=== PATIENT | female | born 1940 | race Caucasian/White ===

== ENCOUNTER 2020-03-20 08:06 | Outpatient (CLI) | payer MEDICARE, SELFPAY ==
[2020-03-20 08:42] LABS: Basophils Absolute Auto 0.1 K/mm3 (0.0-0.1); Basophils Percent Auto 0.4 % (0.2-1.2); Eosinophils Absolute Auto 0.1 K/mm3 (0-0.3); Eosinophils Percent Auto 0.8 % (0-4.4); Hematocrit 42.2 % (37.0-47.0); Hemoglobin 14.2 g/dL (12.0-15.0); Immature Granulocyte Absolute 0.02 K/mm3 (0.00-0.031); Immature Granulocyte Percent A 0.1 % (0-0.5); Lymphocytes Absolute Auto 8.02 K/mm3 (0.9-3.2); Lymphocytes Percent Auto 58.2 % (18.3-44.2); Mean Corpuscular HGB Conc 33.6 g/dl (32-36); Mean Corpuscular Hemoglobin 31.8 pg (26-34); Mean Corpuscular Volume 94.6 fl (80-100); Mean Platelet Volume 9.9 fl (7.4-10.4); Monocytes Absolute Auto 0.5 K/mm3 (0.1-0.6); Monocytes Percent Auto 3.6 % (2.6-8.5); Neutrophils Absolute Auto 5.1 K/mm3 (1.3-6.7); Neutrophils Percent Auto 36.9 % (45.5-73.1); Platelet Count Result 231 k/mm3 (150-375); Red Blood Count 4.46 M/mm3 (4.2-5.4); Red Cell Distribution Width 12.9 % (11.5-14.5); White Blood Count 13.8 K/mm3 (4.5-10.0)
[2020-03-20 08:48] LABS: Blood Urea Nitrogen 20 mg/dL (7-17); Calcium 9.4 mg/dL (8.4-10.2); Carbon Dioxide 28 mmol/L (22-30); Chloride 105 mmol/L (98-107); Estimated Glomerular Filt Rate > 60; Glucose 103 mg/dL (65-105); Potassium 4.5 mmol/L (3.4-5.0); Sodium 137 mmol/L (137-145)
== END 2020-03-20 08:07 | disposition home or self-care (01) ==
PROVIDERS: PCP Internal Medicine; Visit Provider Internal Medicine
DX: Z13.6 Encounter for screening for cardiovascular disorders (principal); C91.10 Chronic lymphocytic leukemia of B-cell type not having achieved remission
CPT/HCPCS: 36415; 80048; 85025

== ENCOUNTER 2020-04-17 08:19 | Outpatient (CLI) | payer MEDICARE, SELFPAY ==
--- NOTE | ~2020-04-17 | MM_ITS ---
EXAMINATION: MM screening anastacio BI w marty HISTORY: Screening TECHNIQUE: Craniocaudal and mediolateral oblique 3-D tomosynthesis images were obtained and synthetic 2-D images were generated. CAD analysis was submitted and interpreted. COMPARISON: Comparison to multiple prior studies sequentially, with oldest reviewed study dated 08/04. BREAST PARENCHYMAL COMPOSITION: There are scattered areas of fibroglandular density. FINDINGS: Stable benign-appearing breast calcifications. There is no evidence of suspicious mass, cam cification, or architectural distortion to suggest malignancy in either breast. There has been no kathleen picious interval change. IMPRESSION: 1. No mammographic evidence of malignancy. 2. Recommend routine screening mammography in one year. BI-RADS Category 2: Benign finding(s). Reviewed, dictated and finalized at location A.
== END 2020-04-17 08:20 | disposition home or self-care (01) ==
PROVIDERS: PCP Internal Medicine; Visit Provider Internal Medicine
DX: Z12.31 Encounter for screening mammogram for malignant neoplasm of breast (principal)
CPT/HCPCS: 77063; 77067

== ENCOUNTER 2021-01-04 22:51 | Inpatient (IN) | payer MEDICARE, OTHER, SELFPAY ==
--- NOTE | ~2021-01-04 | XR_ITS ---
EXAMINATION: XR chest 1V INDICATION: Confusion TECHNIQUE: AP view of the chest is obtained. COMPARISON: 01/31/2014 FINDINGS: There is a possible 4 mm nodule in the right upper lung zone. Minimal airspace opacities ar e present in the right lung base. There is no pleural effusion or pneumothorax. The cardiomediastinal silhouette is normal. Thoracolumbar levoscoliosis is noted. IMPRESSION: 1. Right basilar airspace opacity, consistent with atelectasis versus pneumonia. 2. Possible right upper lung zone nodule. Recommend followup radiographs in 10-14 days after appropri ate therapy to evaluate for improvement/resolution. Reviewed, dictated and finalized at location A. IMPRESSION: 1. Right basilar airspace opacity, consistent with atelectasis versus pneumonia . 2. Possible right upper lung zone nodule. Recommend followup radiographs in 10- 14 days after appropriate therapy to evaluate for improvement/resolution.
--- NOTE | ~2021-01-04 | CT_ITS ---
EXAMINATION: CT brain wo con INDICATION: Confusion and fall COMPARISON: None TECHNIQUE: Standard unenhanced head CT. The dose-length product (DLP) was 605.33 mGy-cm. The mA was a djusted according to patient size. Iterative reconstruction technique was employed. FINDINGS: There is no acute intraparenchymal hemorrhage. No evidence of mass lesion. There is hypoatt enuation involving much of the left occipital lobe. There is mild periventricular and subcortical hyp odensity probably related to small vessel ischemic disease. There is mild prominence of the sulci and ventricles related to cerebral atrophy. Intracranial calcified cerebral atherosclerosis is noted. Th ere are no extra-axial collections. There is no mass effect or midline shift. The orbits and soft tis sues are unremarkable. The visualized sinuses and mastoid air cells are well aerated. IMPRESSION: 1. Hypoattenuation involving much of the left occipital lobe, consistent with subacute infarct. These findings were discussed with Dr. Sonali Solorzano in the Emergency Department at 0200 hours on 01/05/2021 by the [employer] Radiologist. 2. Age related findings. Reviewed, dictated and finalized at location A. IMPRESSION: 1. Hypoattenuation involving much of the left occipital lobe, consistent with s ubacute infarct. These findings were discussed with Dr. Sonali Solorzano in the Em ergency Department at 0200 hours on 01/05/2021 by the [employer] Radiologist. 2. Age related findings.
--- NOTE | ~2021-01-04 | US_ITS ---
EXAMINATION: US carotid duplex BI DATE: 01/05/2021 13:35 INDICATION: Stroke with confusion and unsteady gait TECHNIQUE: Grayscale, color Doppler, and pulsed Doppler images of the cervical carotid arteries were obtained. The degree of vessel stenosis is placed in one of the following categories: normal, <50%, 5 0-69%, >=70% but less than near-occlusion, near-occlusion, or total occlusion. Note that percent sten osis relative to normal distal artery lumen diameter is indirectly measured from velocity measurement s as described by Kory, et al. Radiology 2003; 229:340-346. COMPARISON: None. FINDINGS: RIGHT: The right common carotid artery (CCA) peak systolic velocity (PSV) is 98 cm/s. The right internal car otid artery (ICA) PSV is 80 cm/s. The right ICA end-diastolic velocity (EDV) is 22 cm/s. The right IC A/CCA PSV ratio is 0.8. Grayscale and color Doppler images yield an estimate of <50% diameter reducti on from plaque in the ICA. The external carotid artery (ECA) PSV is 69 cm/s. There is antegrade flow in the right vertebral artery. LEFT: The left CCA PSV is 119 cm/s. The left ICA PSV is 61 cm/s. The left ICA EDV is 19 cm/s. The left ICA/ CCA PSV ratio is 0.5. Grayscale and color Doppler images yield an estimate of <50% diameter reduction from plaque in the ICA. The ECA PSV is 101 cm/s. There is antegrade flow in the left vertebral arter y. IMPRESSION: 1. <50% stenosis from minimal plaque in the right internal carotid artery. 2. <50% stenosis from minimal plaque in the left internal carotid artery. Reviewed, dictated and finalized at location A.
--- NOTE | ~2021-01-04 | MR_ITS ---
EXAMINATION: MR brain/brain stem wo/w con EXAM DATE: 01/05/2021 12:15 INDICATION: Unsteady gait, confusion. TECHNIQUE: Magnetic resonance imaging (MRI) of the brain/brain stem obtained without contrast. Sagit yoel T1, axial diffusion, gradient echo (T2*), T1, T2, FLAIR sequences obtained. Patient was then inj ected with 10 cc intravenous Multihance contrast. Axial and coronal postcontrast T1 weighted sequence s obtained. Correlation is made to head CT earlier same date. FINDINGS: There is large left temporal occipital lobe infarction with some smaller scattered regions in the left side of the corpus callosum posterior limb, and small left thalamic lacunar infarction. T hese are all within expected left posterior cerebral artery distribution, no infarctions within other distributions identified. No hemorrhagic conversion. Degree of gyral swelling suggests this is at le ast 24 hours old. No brain mass. There is mild microangiopathy and cerebral atrophy. There is no acute hemorrhage seen on the T2*, a susceptibility sensitive sequence. There are no extra-axial collections. No obstructive hydrocephalus. Bilateral cataract surgery. IMPRESSION: 1. Acute left [employer] infarctions (likely 1-2 days age). Reviewed, dictated and finalized at location B.
[2021-01-04 22:54] VITALS: BP 168/82; PULSE 88; RESP 18; TEMP 36.3; O2SAT 99
[2021-01-04 23:36] VITALS: BP 134/88; PULSE 80; RESP 16; O2SAT 99
--- NOTE | 2021-01-04 23:54 | ECG_ITS ---
Measurements Intervals [place] Rate: 76 P: 60 NM: 177 QRS: 14 QRSD: 86 T: 43 QT: 361 QTc: 406 Interpretive Statements SINUS RHYTHM POSSIBLE LEFT ATRIAL ENLARGEMENT BORDERLINE ECG Electronically Signed On 01-05-2021 7:13:16 CDT by Jonathan Davis D.O.
[2021-01-05] VITALS (8 sets, daily range): BP systolic 125–154; BP diastolic 60–94; PULSE 58–84; RESP 16–20; TEMP 36.4–36.6; O2SAT 92–99; BMI 21.9
--- NOTE | 2021-01-05 | ECHO_ITS ---
Patient Info Name: Yandy Manuel Age: 80 years : 1940 Gender: Female Ht: 61 in Wt: 115 lbs BSA: 1.50 m2 HR: 80 bpm BP: 143 / 63 mmHg Technical Quality: Fair Exam Date: 01/05/2021 2:21 PM Exam Location: [facility] Pulmonary Patient Status: Inpatient Admit Date: 01/05/2021 Staff Ordering Physician: Chelsi Trotter MD [employer] Supervisor: Leigha Francis RDCS Attending Provider: Taniya Bojorquez DO Referring Physician: Rose Marie OG; Exam Type: CA echo doppler color flow Study Info Indications - cva Complete two-dimensional, color flow and Doppler transthoracic echocardiogram is performed. Summary 1. Complete two-dimensional, color flow and Doppler transthoracic echocardiogram is performed. 2. Left ventricular chamber dimension is normal. 3. Left ventricular systolic function is normal, estimated at 60-65%. 4. The left ventricular diastolic function is grade II diastolic dysfunction. 5. E/e' 12 is mildly elevated. 6. There is trace tricuspid valve regurgitation. 7. No pulmonary hypertension, estimated pulmonary arterial systolic pressure is 24 mmHg. Left Ventricle E/e' 12 is mildly elevated. Left ventricular chamber dimension is normal. Left ventricular systolic function is normal, estimated at 60-65%. The left ventricular diastolic function is grade II diastolic dysfunction. Right Ventricle Right ventricular chamber dimension is normal. Right ventricular systolic function is normal. Left Atria Left atrial chamber dimension is normal. Right Atria Right atrial chamber dimension is normal. Aortic Valve The aortic valve is trileaflet. There is no aortic valve stenosis. There is no aortic valve regurgitation. Pulmonic Valve There is no pulmonic regurgitation. Mitral Valve There is no mitral valve stenosis. There is no mitral valve regurgitation. Tricuspid Valve There is trace tricuspid valve regurgitation. No pulmonary hypertension, estimated pulmonary arterial systolic pressure is 24 mmHg. Pericardium/Pleural There is no pericardial effusion. Inferior Vena Cava Normal inferior vena cava with >50% collapse upon inspiration consistent with normal right atrial pressure, 5 mmHg. Aorta The aortic root size at the sinus of Valsalva is normal. Left Ventricular Outflow Tract Name Value Normal LVOT 2D LVOT Diameter 1.9 cm LVOT Doppler LVOT Peak Velocity 124 cm/s LVOT Peak Gradient 6 mmHg LVOT Mean Gradient 4 mmHg LVOT VTI 24 cm LVOT VTI/AV VTI Ratio 0.8 LVOT Stroke Volume 71 ml LVOT CO 5.3 l/min LVOT CI 3.5 l/min/m2 Pulmonic Valve Name Value Normal RVOT Doppler RVOT Peak Grad
[2021-01-05 00:23] LABS: Basophils Percent Auto 0.3 % (0.2-1.2); Eosinophils Percent Auto 0.3 % (0-4.4); Hematocrit 38.4 % (37.0-47.0); Hemoglobin 12.8 g/dL (12.0-15.0); Immature Granulocyte Absolute 0.05 K/mm3 (0.00-0.031); Immature Granulocyte Percent A 0.3 % (0-0.5); Lymphocytes Percent Auto 43.6 % (18.3-44.2); Mean Corpuscular HGB Conc 33.3 g/dl (32-36); Mean Corpuscular Hemoglobin 31.6 pg (26-34); Mean Corpuscular Volume 94.8 fl (80-100); Mean Platelet Volume 9.8 fl (7.4-10.4); Monocytes Absolute Auto 0.8 K/mm3 (0.1-0.6); Monocytes Percent Auto 5.1 % (2.6-8.5); Neutrophils Absolute Auto 7.9 K/mm3 (1.3-6.7); Neutrophils Percent Auto 50.4 % (45.5-73.1); Platelet Count Result 218 k/mm3 (150-375); Red Blood Count 4.05 M/mm3 (4.2-5.4); Red Cell Distribution Width 12.7 % (11.5-14.5); White Blood Count 15.6 K/mm3 (4.5-10.0)
[2021-01-05 00:32] LABS: Prothrombin Time 13.4 Seconds (11.1-14.7)
[2021-01-05 00:33] LABS: Partial Thromboplastin Time 29.5 SECONDS (22.3-36.8)
[2021-01-05 00:37] LABS: Alanine Aminotransferase 17 U/L (4-35); Albumin Level 4.2 g/dL (3.5-5.1); Alkaline Phosphatase 67 U/L (38-126); Anion Gap 3 mmol/L (8-16); Aspartate Amino Transferase 31 U/L (14-36); Bilirubin,Total 1.2 mg/dL (0.2-1.3); Blood Urea Nitrogen 13 mg/dL (7-17); Calcium 9.6 mg/dL (8.4-10.2); Carbon Dioxide 30 mmol/L (22-30); Chloride 104 mmol/L (98-107); Estimated CRCL calculation 39 ml/min; Estimated Glomerular Filt Rate > 60; Glucose 115 mg/dL (65-105); Potassium 4.1 mmol/L (3.4-5.0); Sodium 137 mmol/L (137-145)
[2021-01-05 00:42] LABS: Troponin I < 0.012 ng/mL (0.000-0.034)
[2021-01-05 00:50] LABS: Creatine Kinase 75 U/L (30-135)
--- NOTE | 2021-01-05 00:56 | ED.AMS ---
HPI - Altered Mental Status General Chief Complaint: Altered Mental Status Stated Complaint: confusion Time Seen by Provider: 01/04/21 23:52 Source: family and RN notes reviewed Mode of arrival: ambulatory Limitations: no limitations History of Present Illness HPI narrative: Patient 80 years old white female brought to the emergency room by her son who noticed that the patient is unsteady and confused. The son reported that his cousin called the patient yesterday and noticed that she is off on the phone. Today the son called his mom and noticed the same, went to see her at home and noticed that she is unsteady while walking, confused, tried to comb her hair using a lipstick, trying to brush her teeth again after she just finished, did not recall a fall, cannot follow his verbal commands. The son noticed that the patient have a little bruises at the right angle of the right eye. Patient denies any fall. Does not take any blood thinner. History of anxiety on Xanax, depression and IBS. Patient does not smoke or drink or uses drugs. Related Data Home Medications Medication Instructions Recorded Confirmed Bacillus coagulans 10 billion cell cell PO 07/04/19 09/25/20 capsule,delayed release cetirizine 10 mg tablet 5 mg PO DAILY PRN 07/04/19 09/25/20 Allergies Allergy/AdvReac Type Severity Reaction Status Date / Time No Known Allergies Allergy Verified 01/04/21 23:39 Review of Systems Review of Systems: ROS unobtainable: Yes unobtainable due to mental status PMFSH Family History Family History Mother Cerebrovascular accident Father Carcinoma of colon Family history of diabetes mellitus in first degree relative Grandparent Diabetes mellitus Sibling Family history of lung cancer Other Family history of malignant neoplasm of breast Social History Social History Smoking status: Never smoker Alcohol intake: never Gender identity (if verbalized by the patient): Female Exam Narrative: Exam Narrative: General appearance: Well-developed, well-nourished Skin: Normal color, 1 cm bruises at the right corner of the eye externally Head: Normocephalic, nontraumatic Eyes: Clear conjunctiva ENT: Oropharynx normal, ears normal, nose normal Neck: Supple, nontender Chest and respiratory: Airway patent, no respiratory distress, no accessory muscle use Heart: Regular rate/rhythm Abdomen: Soft, nontender, no organomegaly, quiet bowel sounds Vascular: Normal peripheral pulses, normal capillary refill. Musculoskeletal: Normal range of motion, nontender back Neurologic: Alert and oriented ?3, unsteady while walking possible shuffling the right foot Course Course Emergency Course: Stable Vital Signs Vital signs: Vital Signs Temperature 36.3 C L 01/04/21 22:54 Pulse Rate 88 01/04/21 22:54 Respiratory Rate 18 01/04/21 22:54 Blood Pressure 168/82 H 01/04/21 22:54 Pulse Oximetry 99 01/04/21 22:54 Temperature 36.3 C L 01/04/21 22:54 Pulse Rate 80 01/05/21 01:08 Respiratory Rate 20 01/05/21 01:08 Blood Pressure 154/94 H 01/05/21 01:08 Pulse Oximetry 99 01/04/21 23:36 MDM - Altered Mental Status MDM Narrative Medical decision making narrative: Patient presents with stroke symptoms. Labs, CT head without contrast ordered. Further plan to follow Differential Diagnosis Differential diagnosis: Likely altered mental status, delirium, hypoglycemia, hyponatremia, subarachnoid hemorrhage and other (Acute CVA) Lab Data Result diagrams: 01/05/21 00:08 01/05/21 00:08 Labs: Lab Results 01/05/21 01/05/21 01/05/21 Range/Units 00:08 00:08 00:08 WBC 15.6 H (4.5-10.0) K/mm3 RBC 4.05 L (4.2-5.4) M/mm3 Hgb 12.8 (12.0-15.0) g/dL Hct 38.4 (37.0-47.0) % MCV 94.8
[2021-01-05] MEDS: SODIUM CHLORIDE 0.9% IV 1,000 ML 999 ML IV CONT (01:07)
[2021-01-05 01:27] LABS: Glucose Point of Care 73 (65-105)
[2021-01-05] MEDS: ASPIRIN 325 MG TABLET PO (01:41)
[2021-01-05 01:57] LABS: Add Urine Microscopic? YES; Appearance Urine Cloudy (Clear); Bilirubin Urine Negative (Negative); Blood Urine Negative (Negative); Color Urine Yellow (Yellow); Glucose Urine UA Negative (Negative); Ketones Urine Trace mg/dL (Negative); Leukocyte Esterase Ur Trace LEU/UL (Negative); Mucus Urine Rare /lpf; Nitrate Urine Negative (Negative); Protein Urine Negative (Negative); RBC Urine 0-2 /hpf (0-2); Specific Grav Ur 1.006 (1.001-1.035); Squamous Epithelial Cell Urine Rare /hpf (Few); Urobilinogen Urine Negative mg/dL (<2.0); WBC Urine 0-3 /hpf
[2021-01-05 02:01] LABS: Amphetamine Screen Urine Negative (Negative); Barbiturate Screen Urine Negative (Negative); Benzodiazepines Screen Urine Negative (Negative); Cannabinoid Screen Urine Negative (Negative); Cocaine Screen Urine Negative (Negative); Methadone Screen Urine Negative (Negative); Opiate Screen Urine Negative (Negative); Phencyclidine Screen Urine Negative (Negative)
--- NOTE | 2021-01-05 02:51 | ADMGEN ---
This patient, Yandy Manuel, was admitted to Medical Room 256-. Patient/family oriented to hospital policies and general routines including ID bracelet, bed and alarms, visiting hours, pain management, procedures, bathroom and other care routines, personal items, smoking policy, room service/diet, and visiting hours. Information on how to activate the Rapid Response Team has been discussed. Patient/Family are encouraged to report perceived risks to care and to ask questions if they do not understand what they are told or what they should do.
--- NOTE | 2021-01-05 08:00 | PC.NURSE ---
Patient having difficulty with vision on right side. When tray placed in front of her, patient asked where her tea was. Tea was in front of the patient on the tray but slightly off to the right side. Did not seem to see the items on the right side of the tray. Some cognitive difficulty noted in that patient had to think about the year - and initially stated it was 2000. Patient reoriented quickly and seemed to know she was having difficulty in that after she said 2000 she then said, that's not right, is it? She also asked what to do with her tea bag initially when given her tray.
[2021-01-05] MEDS: ASPIRIN 81 MG CHEWABLE TABLET PO (09:20)
--- NOTE | 2021-01-05 10:20 | WPDNEURCNPN ---
Assessment and Plan Assessment and plan (1) Acute cerebrovascular accident (CVA): Code(s): I63.9 - Cerebral infarction, unspecified Status: Acute Additional Plan history of stumbling, confusion, right outer canthal bruise, documented subtle drift of the right upper extremity in addition to confusion. And abnormal CT scan of the head with left occipital hypoattenuation consistent with right visual field cut on the clinical examination, finding is suggestive of the stroke the source unclear further evaluation recommended Consult date: 01/05/21 Time Seen: 10:00 HPI: Yandy Manuel is a 80 year old femaleAdmitted to the hospital through the emergency room for the complaints of confusion and being unsteady when she tried to comb her hair, used lipstick or tried to brush her teeth she had difficulties and also had difficulties in recalling what has happened he was also noted to have a small bruise on the right side of the eye though she could not recall any fall. Patient is a nonsmoker nondrinker and initial evaluation revealed her to have WBC is 15.6 with hemoglobin 12.8 platelet count 218 INR of 1.0, normal basic metabolic panel, negative UA, negative toxicology screen CT scan of the head documented hypoattenuation involving much of the left occipital lobe consistent with subacute infarct Review of Systems Review of Systems: All systems reviewed & are unremarkable except as noted in HPI and below PMFSH Family History Family History Mother Cerebrovascular accident Father Carcinoma of colon Family history of diabetes mellitus in first degree relative Grandparent Diabetes mellitus Sibling Family history of lung cancer Other Family history of malignant neoplasm of breast Social History Social History Smoking status: Never smoker Alcohol intake: never Substance use: never Substance use type: does not use Gender identity (if verbalized by the patient): Female Spiritual care concerns: No Meds Home Medications and Allergies Home Medications Medication Instructions Recorded Confirmed Type Bacillus coagulans 10 billion cell 1 cell PO DAILY 07/04/19 01/05/21 History capsule,delayed release cetirizine 10 mg tablet 5 mg PO DAILY PRN 07/04/19 01/05/21 History alprazolam 0.25 mg tablet 0.25 mg PO DAILY #30 tablet 04/19/21 05/04/21 Rx amitriptyline 10 mg PO HS 01/05/21 01/05/21 History Allergies Allergy/AdvReac Type Severity Reaction Status Date / Time No Known Allergies Allergy Verified 01/04/21 23:39 Vital Signs Vital Signs - 24 hr 01/04/21 22:54 01/04/21 23:36 01/05/21 01:08 Temperature 36.3 C L Pulse Rate 88 80 80 Respiratory Rate 18 16 20 Blood Pressure 168/82 H 134/88 154/94 H Pulse Oximetry 99 99 01/05/21 03:35 01/05/21 04:57 Temperature 36.4 C L Pulse Rate 77 76 Respiratory Rate 18 Blood Pressure 143/63 H Pulse Oximetry 96 Exam Const: General: cooperative, healthy appearing, comfortable, no acute distress, alert, awake, anxious and confusion Nutritional Appearance: average body habitus Orientation/consciousness: oriented to person and oriented to place Limitations: physical limitations HENMT: Head: normal to inspection and normocephalic Ears: hearing grossly normal bilaterally General nose exam: Normal external nose present Face and sinus: normal facial exam, abrasion ( right shefali canthal area), ecchymosis and erythema Mouth: Yes Normal oral and palatal mucosa present Throat: posterior oropharynx normal and uvula midline Eyes: General: appearance normal, both eyes and all related structures Visual Britton: abnormal by confrontation ( right-sided visual field cut) right visual field cut Alignment and Position: alignment normal Periorbital: periorbital findings abnormal ( bruise and abrasion in the right periorbital area near the outer canthus) Eyelids:
--- NOTE | 2021-01-05 12:17 | PM.IMHP ---
H&P: HPI History of Present Illness Date/Time: 01/05/21 12:17 Chief Complaint: CONFUSION Narrative: 80 year old brought in with confusion pt does not appear confused today orientedx3. possible fall pt does no recall events yesterday. Pt has a bruise on right lower eye lid. CT head shows subacute infarct. Pt denies any swallow, speech problems, no weakness in her arms or legs. But patient vision appears impaired. R hemianopia. Neurology is consulted. Pt is having MRI of brain yet to be reported. CXR shows possible pneumonia. Wcc slightly high. History of anxiety on Xanax, depression and IBS. Pt was brought in by her son. Who was concerned with her confusion and unsteadiness of gait Review of Systems Review of Systems: All systems reviewed & are unremarkable except as noted in HPI and below PMFSH Family History Family History Mother Cerebrovascular accident Father Carcinoma of colon Family history of diabetes mellitus in first degree relative Grandparent Diabetes mellitus Sibling Family history of lung cancer Other Family history of malignant neoplasm of breast Social History Social History Smoking status: Never smoker Alcohol intake: never Substance use: never Substance use type: does not use Gender identity (if verbalized by the patient): Female Spiritual care concerns: No Meds Home Medications and Allergies Home Medications Medication Instructions Recorded Confirmed Type Bacillus coagulans 10 billion cell 1 cell PO DAILY 07/04/19 01/05/21 History capsule,delayed release cetirizine 10 mg tablet 5 mg PO DAILY PRN 07/04/19 01/05/21 History alprazolam 0.25 mg tablet 0.25 mg PO DAILY #30 tablet 12/21/20 01/05/21 Rx amitriptyline 10 mg PO HS 01/05/21 01/05/21 History Allergies Allergy/AdvReac Type Severity Reaction Status Date / Time No Known Allergies Allergy Verified 01/04/21 23:39 Vital Signs Vital Signs - 24 hr 01/04/21 22:54 01/04/21 23:36 01/05/21 01:08 Temperature 36.3 C L Pulse Rate 88 80 80 Respiratory Rate 18 16 20 Blood Pressure 168/82 H 134/88 154/94 H Pulse Oximetry 99 99 01/05/21 03:35 01/05/21 04:57 01/05/21 08:00 Temperature 36.4 C L Pulse Rate 77 76 79 Respiratory Rate 18 Blood Pressure 143/63 H Pulse Oximetry 96 Exam Const: General: well developed Nutritional Appearance: well nourished HENMT: Head: normocephalic Eyes: General: appearance normal, both eyes and all related structures Pupils: Equal, round and reactive pupils present Other: R hemianopia. Neck: Neck: supple Chest: Chest palpation & inspection: normal inspection of the chest Resp: Effort & Inspection: normal respiratory effort Auscultation: clear to auscultation bilaterally Cardio: Jugular venous distension: no JVD Rhythm: regular rhythm Heart sounds: S1 normal heart sound present and S2 normal heart sound present GI: Inspection: normal to inspection GI Palp: No abdominal tenderness, Yes Soft to palpation and No Tenderness to palpation present (GI) Auscultation: normal bowel sounds : General: Yes no CVA tenderness Back/Spine/Pelvis: Back: no CVA tenderness Skin: General skin exam: normal color and dry skin Neuro: Cranial nerves: Yes CN's II-XII intact bilaterally and Yes Equal, round and reactive pupils present Cognition (Neuro): normal cognition Speech: normal speech Motor exam (neuro): 5/5 motor strength present throughout Extrem: General: normal to inspection Psych: Appearance: grossly normal Mental Status: mental status grossly normal H&P: Results Labs Labs: Short CBC 01/05/21 Range/Units 00:08 WBC 15.6 H (4.5-10.0) K/mm3 Hgb 12.8 (12.0-15.0) g/dL Hct 38.4 (37.0-47.0) % Plt Count 218 (150-375) k/mm3 BMP 01/05/21 00:08 Sodium 137 Potassium 4.1 Chloride 104 Carbon Dioxide 30 BUN 13 D
[2021-01-05] MEDS: SACCHAROMYCES BOULARDII 250 MG CAPSULE PO (17:12)
--- NOTE | 2021-01-05 17:40 | PC.NURSE ---
Patient c/o double vision at times.
[2021-01-05] MEDS: ALPRAZolam (*CRX) 0.25 MG TABLET PO (20:41)
[2021-01-05] MEDS: AMOXICILLIN/CLAVULANATE K 875-125 MG TAB 1 TABLET PO (20:42)
[2021-01-06] VITALS (10 sets, daily range): BP systolic 118–134; BP diastolic 62–71; PULSE 75–89; RESP 16–20; TEMP 36.4–37.2; O2SAT 98–100
[2021-01-06] MEDS: ASPIRIN 81 MG CHEWABLE TABLET PO (08:08)
[2021-01-06] MEDS: SACCHAROMYCES BOULARDII 250 MG CAPSULE PO ×2 (08:08→18:05)
[2021-01-06] MEDS: AMOXICILLIN/CLAVULANATE K 875-125 MG TAB 1 TABLET PO (08:08)
--- NOTE | 2021-01-06 11:21 | WPDNEURCNPN ---
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 patient does have underlying ongoing mild dementia these findings were explained to the son she will follow-up with the medication has and will follow in the office Consult date: 01/06/21 Time Seen: 11:00 HPI: Yandy Manuel is a 80 year old female admitted to the hospital for the complaints of stumbling and confusion and the evaluation documenting less than 50% stenosis on carotid Doppler ultrasound bilaterally of internal carotid arteries, 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 possibly 24 to 48 hours duration before coming to the hospital, picked up on initial CT scan as well and routine blood studies unremarkable, on today's visit patient's son was also present and all the pros and cons of the diagnosis were discussed with him particularly the continuation of the aspirin with normal echocardiogram and if we find any cardiac abnormalities then we need to have the stronger anticoagulation therapy so otoniel understood the difference Review of Systems Review of Systems: All systems reviewed & are unremarkable except as noted in HPI and below PMFSH Family History Family History Mother Cerebrovascular accident Father Carcinoma of colon Family history of diabetes mellitus in first degree relative Grandparent Diabetes mellitus Sibling Family history of lung cancer Other Family history of malignant neoplasm of breast Social History Social History Smoking status: Never smoker Alcohol intake: never Substance use: never Substance use type: does not use Gender identity (if verbalized by the patient): Female Spiritual care concerns: No Meds Home Medications and Allergies Home Medications Medication Instructions Recorded Confirmed Type Bacillus coagulans 10 billion cell 1 cell PO DAILY 07/04/19 01/05/21 History capsule,delayed release cetirizine 10 mg tablet 5 mg PO DAILY PRN 07/04/19 01/05/21 History alprazolam 0.25 mg tablet 0.25 mg PO DAILY #30 tablet 12/21/20 01/05/21 Rx amitriptyline 10 mg PO HS 01/05/21 01/05/21 History Allergies Allergy/AdvReac Type Severity Reaction Status Date / Time No Known Allergies Allergy Verified 01/04/21 23:39 Vital Signs Vital Signs - 24 hr 01/05/21 14:00 01/05/21 16:00 01/05/21 20:00 Temperature 36.6 C Pulse Rate 77 79 84 Respiratory Rate 16 Blood Pressure 125/60 Pulse Oximetry 99 01/05/21 20:06 01/06/21 00:00 01/06/21 04:00 Temperature 36.6 C Pulse Rate 58 L 76 75 Respiratory Rate 16 Blood Pressure 141/71 H Pulse Oximetry 92 01/06/21 05:16 01/06/21 08:00 01/06/21 10:00 Temperature 36.8 C 36.4 C Pulse Rate 84 79 82 Respiratory Rate 18 16 Blood Pressure 131/71 118/71 Pulse Oximetry 98 100 Exam Const: General: cooperative, comfortable, no acute distress, alert and awake Orientation/consciousness: oriented to person and oriented to place Limitations: other limitations HENMT: Head: normal to inspection Ears: hearing grossly normal bilaterally General nose exam: Normal external nose present Face and sinus: normal facial exam Mouth: Yes Normal oral and palatal mucosa present Eyes: General: appearance normal, both eyes and all related structures Visual Britton: abnormal by confrontation Alignment and Position: alignment normal Periorbital: periorbital findings abnormal Eyelids: eyelids normal Conjunctivae: conjunctivae normal Sclera: sclerae normal Cornea: corneas normal Pupils: Equal, round and reactive pupils present EOM: EOMs intact bilaterally Neck: Neck: full ROM Resp: Effort & Inspection: normal respiratory effort an
--- NOTE | 2021-01-06 11:47 | PM.IMPN ---
Progress Note: A&P Assessment and Plan (1) Acute cerebrovascular accident (CVA): Code(s): I63.9 - Cerebral infarction, unspecified Status: Acute Assessment and Plan: Continue ASA, some deficits of R hemianopia. PT/OT for gait, Neurology consult, Sp mri brain echo and us carotids. (2) Anxiety: Code(s): F41.9 - Anxiety disorder, unspecified Status: Acute Assessment and Plan: Continue xanax prn anxiety and insomnia (3) CLL (chronic lymphocytic leukemia): Code(s): C91.10 - Chronic lymphocytic leukemia of B-cell type not having achieved remission Status: Acute Assessment and Plan: Chronic problem, Baseline WCC will be high (4) Dyslipidemia: Code(s): E78.5 - Hyperlipidemia, unspecified Status: Acute Assessment and Plan: Chronic problem (5) Pneumonia: Code(s): J18.9 - Pneumonia, unspecified organism Status: Ruled-out Assessment and Plan: No cough or fever can stop oral abx, Pt has history of CLL, baseline WCC will be high Subjective Date/time seen: 01/06/21 11:47 Interval history: 80 year old brought in with confusion pt does not appear confused today orientedx3. admitted with recent CVA and has mild dementia, awaiting placement. No cough or fever Review of Systems Review of Systems: All systems reviewed & are unremarkable except as noted in HPI and below Exam Const: General: well developed Nutritional Appearance: well nourished Eyes: Other: R hemianopia. mild confusion Neck: Neck: supple Chest: Chest palpation & inspection: normal inspection of the chest Resp: Effort & Inspection: normal respiratory effort Auscultation: clear to auscultation bilaterally Cardio: Jugular venous distension: no JVD Rhythm: regular rhythm Heart sounds: S1 normal heart sound present and S2 normal heart sound present GI: Inspection: normal to inspection Auscultation: normal bowel sounds Skin: General skin exam: normal color and dry skin Neuro: Cranial nerves: Yes CN's II-XII intact bilaterally and Yes Equal, round and reactive pupils present Cognition (Neuro): normal cognition Speech: normal speech Motor exam (neuro): 5/5 motor strength present throughout Extrem: General: normal to inspection Psych: Appearance: other (disoriented at times, forgetful ) Objective Data Vital Signs Vital Signs: Vital Signs - 24 hr 01/05/21 14:00 01/05/21 16:00 01/05/21 20:00 Temperature 36.6 C Pulse Rate 77 79 84 Respiratory Rate 16 Blood Pressure 125/60 Pulse Oximetry 99 01/05/21 20:06 01/06/21 00:00 01/06/21 04:00 Temperature 36.6 C Pulse Rate 58 L 76 75 Respiratory Rate 16 Blood Pressure 141/71 H Pulse Oximetry 92 01/06/21 05:16 01/06/21 08:00 01/06/21 10:00 Temperature 36.8 C 36.4 C Pulse Rate 84 79 82 Respiratory Rate 18 16 Blood Pressure 131/71 118/71 Pulse Oximetry 98 100 Intake/Output Intake/Output: Intake & Output 01/03/21 01/04/21 01/05/21 01/06/21 23:59 23:59 23:59 23:59 Intake Total 1830 550 Output Total 1100 100 Balance 730 450 Meds/Results Medications: Active Medications Generic Name Dose Route Start Last Admin Trade Name Warren PRN Reason Stop Dose Admin Alprazolam 0.25 mg 01/05/21 21:00 01/05/21 20:41 Alprazolam (*Crx) 0.25 Mg Tablet PO 0.25 mg HS CASEY Administration Amoxicillin/Clavulanate Potassium 1 tablet 01/05/21 21:00 01/06/21 08:08 Amoxicillin/Clavulanate K 875-125 Mg Tab PO 1 tablet Q12HR CASEY Administration Aspirin 81 mg 01/05/21 08:00 01/06/21 08:08 Aspirin 81 Mg Chewable Tablet PO 81 mg DAILY@0800 CASEY Administration Saccharomyces Boulardii 250 mg 01/05/21 17:00 01/06/21 08:08 Saccharomyces Boulardii 250 Mg Capsule PO 250 mg BID CASEY Administration Radiology Results: ITS Impressions Chest X-Ray 01/05/21 07:06 IMPRESSION: 1. Right basilar airspace opacity, consistent with atelectasis versus
[2021-01-06 12:56] LABS: Cholesterol 223 mg/dL (0-200); HDL Direct 74 mg/dL; Triglycerides 137 mg/dL (<150)
[2021-01-06 13:07] LABS: LDL Cholesterol Direct 107 mg/dL
[2021-01-06] MEDS: ALPRAZolam (*CRX) 0.25 MG TABLET PO (20:27)
[2021-01-07] VITALS: PULSE 75
[2021-01-07 04:00] VITALS: PULSE 71
[2021-01-07 05:27] VITALS: BP 126/63; PULSE 80; RESP 16; TEMP 36.9; O2SAT 99
[2021-01-07 08:00] VITALS: PULSE 84
[2021-01-07] MEDS: SACCHAROMYCES BOULARDII 250 MG CAPSULE PO (08:21)
[2021-01-07] MEDS: ASPIRIN 325 MG TABLET PO (08:21)
[2021-01-07] MEDS: ATORVASTATIN 20 MG TABLET PO (08:21)
[2021-01-07 08:24] VITALS: RESP 16; O2SAT 98
--- NOTE | 2021-01-07 12:26 | PM.DS ---
DS: Admitting Diagnosis Admitting Diagnosis Admitting Diagnosis: CONFUSION DS: Discharge Diagnosis Discharge Diagnosis (1) Acute cerebrovascular accident (CVA): Code(s): I63.9 - Cerebral infarction, unspecified Status: Acute Assessment and Plan: Continue ASA, some deficits of R hemianopia. PT/OT for gait, Pt seen by neurology, Sp mri brain echo and us carotids. MRI brain show- 1. 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 Echo show-Left ventricular systolic function is normal, estimated at 60-65%. The left ventricular diastolic function is grade II diastolic dysfunction. Us carotids show- 1. <50% stenosis from minimal plaque in the right internal carotid artery. 2. <50% stenosis from minimal plaque in the left internal carotid artery. (2) Anxiety: Code(s): F41.9 - Anxiety disorder, unspecified Status: Acute Assessment and Plan: Continue xanax prn anxiety and insomnia, amitryplline has been stopped as pt has history of falls. (3) CLL (chronic lymphocytic leukemia): Code(s): C91.10 - Chronic lymphocytic leukemia of B-cell type not having achieved remission Status: Acute Assessment and Plan: Chronic problem, Baseline WCC will be high (4) Dyslipidemia: Code(s): E78.5 - Hyperlipidemia, unspecified Status: Acute Assessment and Plan: Chronic problem (5) Pneumonia: Code(s): J18.9 - Pneumonia, unspecified organism Status: Ruled-out Assessment and Plan: No cough or fever can stop oral abx, Pt has history of CLL, baseline WCC will be high DS: Summary Hospital Course Hospital Course: 80 year old brought in with confusion pt does not appear confused today orientedx3. admitted with recent CVA and has mild dementia, awaiting placement. Pt left with a R hemianopia. Pt seen by neurology while in hospital. Pt had mri brain, echo and us carotids. Time Spent with Patient Time attestation: Total time spent providing and/or coordinating discharge services:40 minutes on day of discharge Exam Const: General: well developed Nutritional Appearance: well nourished HENMT: Head: normocephalic Eyes: General: appearance normal, both eyes and all related structures Pupils: Equal, round and reactive pupils present Other: R hemianopia. Neck: Neck: supple Chest: Chest palpation & inspection: normal inspection of the chest Resp: Effort & Inspection: normal respiratory effort Auscultation: clear to auscultation bilaterally Cardio: Jugular venous distension: no JVD Rhythm: regular rhythm Heart sounds: S1 normal heart sound present and S2 normal heart sound present GI: Inspection: normal to inspection Auscultation: normal bowel sounds : General: Yes no CVA tenderness Skin: General skin exam: normal color and dry skin Neuro: Cranial nerves: Yes CN's II-XII intact bilaterally and Yes Equal, round and reactive pupils present Cognition (Neuro): normal cognition Speech: normal speech Motor exam (neuro): 5/5 motor strength present throughout Extrem: General: normal to inspection Psych: Appearance: other (disoriented at times, forgetful ) Mental Status: mental status grossly normal DS: Data Data Completed and Pending Labs on day of discharge: Labs from last 24 hours 01/06/21 12:38 Triglycerides 137 Cholesterol 223 H LDL Cholesterol Direct 107 HDL Direct 74 Preliminary micro results at discharge 01/05/21 13:52 Blood Culture - Preliminary Blood 01/05/21 13:52 Blood Culture - Preliminary Blood Discharge Plan Discharge Attending physician on discharge: Chelsi Trotter Consulting providers: Rivera Carlson Discharging Clinician: Chelsi Trotter Anticipated Discharge Date/Time: 01/07/21 12:25 Patient Disposition: SNF Activity: as tolerated Diet: heart healthy Discharge Instructions: PatientYandy 1940, to be discharged, 01/07/[address] [facility]
== END 2021-01-07 13:20 | DRG 65 ==
LOC: ANHED 01-05 01:52 → ANH2MED 01-05 02:29
PROVIDERS: Admitting Provider Internal Medicine; Emergency Provider Emergency Medicine; PCP Internal Medicine; Visit Provider Family Medicine
DX: I63.9 Cerebral infarction, unspecified (principal); C91.10 Chronic lymphocytic leukemia of B-cell type not having achieved remission; G81.91 Hemiplegia, unspecified affecting right dominant side; R26.81 Unsteadiness on feet; H53.47 Heteronymous bilateral field defects; F41.9 Anxiety disorder, unspecified; E78.5 Hyperlipidemia, unspecified; F03.90 Unspecified dementia, unspecified severity, without behavioral disturbance, psychotic disturbance, mood disturbance, and anxiety; F32.9 Major depressive disorder, single episode, unspecified; K58.9 Irritable bowel syndrome, unspecified; R29.702 NIHSS score 2
CPT/HCPCS: 36415; 70450; 70553; 71045; 80053; 80061; 80307; 81001; 82550; 82948; 84443; 84484; 85025; 85610; 85730; 87040; 92507; 92523; 93005; 93306; 93880; 96360; 97110; 97161; 97165; 97530; 97535; 99285; A9270; A9577; J7030

== ENCOUNTER 2021-02-11 10:23 | Emergency (ER) | payer MEDICARE, OTHER, SELFPAY ==
[2021-02-11] VITALS (7 sets, daily range): BP systolic 128–158; BP diastolic 73–81; PULSE 69–76; RESP 14–22; TEMP 36.3; O2SAT 98
--- NOTE | 2021-02-11 10:52 | ECG_ITS ---
Measurements Intervals [place] Rate: 73 P: 61 TN: 190 QRS: 12 QRSD: 76 T: 52 QT: 347 QTc: 385 Interpretive Statements SINUS RHYTHM POSSIBLE LEFT ATRIAL ENLARGEMENT BASELINE ARTIFACT- I, III, AVL BORDERLINE ECG Electronically Signed On 02-11-2021 10:53:52 CDT by Jonathan Davis D.O.
[2021-02-11 10:59] LABS: Basophils Absolute Auto 0.1 K/mm3 (0.0-0.1); Basophils Percent Auto 0.4 % (0.2-1.2); Eosinophils Absolute Auto 0.1 K/mm3 (0-0.3); Eosinophils Percent Auto 0.5 % (0-4.4); Hematocrit 40.2 % (37.0-47.0); Hemoglobin 13.2 g/dL (12.0-15.0); Immature Granulocyte Absolute 0.04 K/mm3 (0.00-0.031); Immature Granulocyte Percent A 0.2 % (0-0.5); Lymphocytes Absolute Auto 9.71 K/mm3 (0.9-3.2); Lymphocytes Percent Auto 58.2 % (18.3-44.2); Mean Corpuscular HGB Conc 32.8 g/dl (32-36); Mean Corpuscular Hemoglobin 31.4 pg (26-34); Mean Corpuscular Volume 95.5 fl (80-100); Mean Platelet Volume 10.2 fl (7.4-10.4); Monocytes Absolute Auto 0.5 K/mm3 (0.1-0.6); Monocytes Percent Auto 3.1 % (2.6-8.5); Neutrophils Absolute Auto 6.3 K/mm3 (1.3-6.7); Neutrophils Percent Auto 37.6 % (45.5-73.1); Platelet Count Result 223 k/mm3 (150-375); Red Blood Count 4.21 M/mm3 (4.2-5.4); Red Cell Distribution Width 13.2 % (11.5-14.5); White Blood Count 16.7 K/mm3 (4.5-10.0)
[2021-02-11 11:06] LABS: Anion Gap 6 mmol/L (8-16); Blood Urea Nitrogen 15 mg/dL (7-17); Calcium 9.9 mg/dL (8.4-10.2); Carbon Dioxide 28 mmol/L (22-30); Chloride 108 mmol/L (98-107); Estimated CRCL calculation 44 ml/min; Estimated Glomerular Filt Rate > 60; Glucose 104 mg/dL (65-105); Sodium 142 mmol/L (137-145)
[2021-02-11] MEDS: SODIUM CHLORIDE 0.9% IV 1,000 ML 999 ML IV CONT (11:29)
[2021-02-11 11:39] LABS: Add Urine Microscopic? YES; Appearance Urine Clear (Clear); Bilirubin Urine Negative (Negative); Blood Urine Negative (Negative); Color Urine Yellow (Yellow); Glucose Urine UA Negative (Negative); Ketones Urine Negative (Negative); Leukocyte Esterase Ur Negative LEU/UL (Negative); Mucus Urine Rare /lpf; Nitrate Urine Negative (Negative); Protein Urine Negative (Negative); Specific Grav Ur 1.009 (1.001-1.035); Squamous Epithelial Cell Urine Rare /hpf (Few); Urobilinogen Urine Negative mg/dL (<2.0); WBC Urine 0-3 /hpf
--- NOTE | 2021-02-11 12:36 | ED.GENADULT ---
HPI - General Adult General Chief complaint: Altered Mental Status Stated complaint: doesnt feel right vision is off Time Seen by Provider: 02/11/21 10:32 History of Present Illness HPI narrative: Patient is a 80-year-old female who presents ER with not feeling right. Patient recently had a stroke that left her with right hemianopsia. She has no new weakness or confusion. She does have some history of anxiety but denies feeling overtly anxious. No urinary frequency urgency or dysuria. Cannot describe any aggravating or alleviating factors. Patient does not have any expressive aphasia. Related Data Home Medications Medication Instructions Recorded Confirmed Bacillus coagulans 10 billion cell 1 cell PO DAILY 07/04/19 01/28/21 capsule,delayed release cetirizine 10 mg tablet 5 mg PO DAILY PRN 07/04/19 01/28/21 Allergies Allergy/AdvReac Type Severity Reaction Status Date / Time No Known Allergies Allergy Verified 02/11/21 10:41 Review of Systems Review of Systems: All systems reviewed & are unremarkable except as noted in HPI and below Constitutional: Constitutional: Denies chills, Denies fever(s) and Denies weakness ENT: Denies nasal congestion and Denies sore throat Cardiovascular: Cardiovascular: Denies chest pain and Denies radiating jaw, neck or arm pain Respiratory: Respiratory: Denies cough and Denies dyspnea Gastrointestinal: Gastrointestinal: Denies abdominal pain, Denies nausea and Denies vomiting Neurologic: Denies syncope, Denies headache(s), Denies focal weakness and Denies numbness PMFSH Past Medical History Medical History (Updated 02/11/21 @ 12:44 by Jose Armando Peraza MD) Acute cerebrovascular accident (CVA) Anxiety CLL (chronic lymphocytic leukemia) Dyslipidemia Family History Family History Mother Cerebrovascular accident Father Carcinoma of colon Family history of diabetes mellitus in first degree relative Grandparent Diabetes mellitus Sibling Family history of lung cancer Other Family history of malignant neoplasm of breast Social History Social History Smoking status: Never smoker Alcohol intake: never Substance use: never Substance use type: does not use Gender identity (if verbalized by the patient): Female Spiritual care concerns: No Exam Narrative: Exam Narrative: GENERAL: Well-appearing, well-nourished, and in no acute distress. HEAD: Normocephalic, atraumatic. EYES: PERRL and EOMI. CHEST: Clear to auscultation. No respiratory distress. HEART: Regular rate and rhythm. Normal peripheral pulses. ABDOMEN: Soft, nontender, nondistended. EXTREMITIES: Normal range of motion. No edema. SKIN: Warm, dry, no rash. NEURO: No upper or lower extremity drift. Cranial nerves II through XII intact. Patient does report right-sided hemianopsia. Alert and oriented x3. PSYCH: Normal mood and affect. Course Course Emergency Course: Unremarkable evaluation. Patient ambulatory without issue. Discharge home. Vital Signs Vital signs: Vital Signs Temperature 97.3 F L 02/11/21 10:34 Pulse Rate 75 02/11/21 10:34 Respiratory Rate 14 02/11/21 10:34 Blood Pressure 145/75 H 02/11/21 10:34 Pulse Oximetry 98 02/11/21 10:34 Temperature 97.3 F L 02/11/21 10:34 Pulse Rate 69 02/11/21 12:01 Respiratory Rate 16 02/11/21 12:01 Blood Pressure 144/77 H 02/11/21 12:01 Pulse Oximetry 98 02/11/21 12:01 Medical Decision Making Vital Signs Vital Signs: Vital Signs Temperature 97.3 F L 02/11/21 10:34 Pulse Rate 75 02/11/21 10:34 Respiratory Rate 14 02/11/21 10:34 Blood Pressure 145/75 H 02/11/21 10:34 Pulse Oximetry 98 02/11/21 10:34 Temperature 97.3 F L 02/11/21 10:34 Pulse Rate 69 02/11/21 12:01 Respiratory Rate 16 02/11/21 12:01 Blood Pressure 144/77 H 02/11/21 12:01 Pulse Oximetry 98 02/11/21 12:
[2021-02-11 15:56] LABS: Glucose Point of Care 114 mg/dl (65-105)
== END 2021-02-11 12:59 | disposition home or self-care (01) ==
PROVIDERS: Emergency Provider Emergency Medicine; PCP Internal Medicine
DX: R53.1 Weakness (principal); I69.998 Other sequelae following unspecified cerebrovascular disease; H53.47 Heteronymous bilateral field defects; R94.31 Abnormal electrocardiogram [ECG] [EKG]
CPT/HCPCS: 36415; 80048; 81001; 82948; 85025; 93005; 96360; 99283; J7030

== ENCOUNTER 2021-06-01 09:00 | Outpatient (RCR) | payer MEDICARE, BC, SELFPAY ==
--- NOTE | 2021-05-03 16:06 | STOPEVAL ---
SPEECH THERAPY INITIAL EVALUATION: Thank you for referring Yandy Manuel to [facility].? The patient is scheduled to be seen for therapy? 2x/week for 4 weeks. Please review, sign, date and return this plan of care MARGARET. I agree with and certify that the following plan of care is medically necessary. Referring Physician Date Attending Provider: Reed Tai DO Neurological History Hx Cerebrovascular Accident (CVA) Yes: 01/2021 Cardiovascular History Hx Cardiac Disorders No Significant History Respiratory History Hx Respiratory Disorders No Significant History Gastrointestinal History Hx Irritable Bowel Yes Genitourinary History Hx Genitourinary Disorders No Significant History Musculoskeletal History Hx Musculoskeletal Disorders No Significant History Hematological History Hx Hematological Disorders No Significant History Endocrine History Hx Endocrine Disorders No Significant History HEENT History Hx HEENT Disorders No Significant History Integumentary History Hx Skin Disorders No Significant History Reproductive History Hx Reproductive Disorders No Significant History Psychosocial History Hx Anxiety Yes Hx Depression Yes Pain History History of Any Previous or Ongoing No Significant History Instance of Pain Anesthesia History Hx Anesthesia Reactions No Significant History Prior Level of Function Activity Level (Last 3 Months) 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79 Hand Dominance Right Activity of Daily Living Ability Independent Indoor/Home Mobility Independent Community Mobility Independent Stairs Ability Independent Functional Cognition (Planning, Shopping Independent , Taking Medications) Cooking Yes Cleaning Yes Laundry Yes Shopping Yes Driving No Home Setting Home Type Condo/Duplex/Townhouse Living Situation Alone Prior Swallow Level Prior Intake Method Oral Prior Diet Regular (Level 7 Diet) Prior Liquid Consistency Thin (Level 0 Diet) Prior Cognition/Communication Prior Communication Level No Impairment Prior Cognitive Function Able to Function Independently ,Judgement Intact,Memory Intact Prior Ability to Handle Finances Independent Language Evaluation Auditory Comprehension Complex Yes/No Questions (% Accuracy (0- 100 100)) Auditory Comprehension of Complex 75 Directives (% Accuracy (0-100)) Auditory Comprehension of Simple 80 Paragraphs (% Accuracy (0-100)) Response Late
--- NOTE | 2021-06-01 16:26 | STOPEVAL ---
SPEECH THERAPY DISCHARGE NOTE: Thank you for referring Yandy Manuel to [facility].? The pt has completed 8 outpatient speech therapy treatments which focused on improving reading & auditory comprehension and verbal and written expression. The pt has achieved her goals and will be discharged at this time. Formal visual testing should be considered as obvious visual decline was exhibited during course of treatment. Please review, sign, date and return this discharge MARGARET. I agree with and certify with the following discharge. Referring Physician Date Attending Provider: Reed Tai, Language Evaluation Auditory Comprehension Auditory Comprehension of Complex 100 Directives (% Accuracy (0-100)) Auditory Comprehension of Complex 100 Paragraphs (% Accuracy (0-100)) Response Latency No Impairments Overall Auditory Comprehension Ability WFL Additional Auditory Comprehension WFL for advanced/complex Comments directives and paragraphs; pt' s anxiety and lack of confidence interferes Reading Comprehension Name Recognition Yes Numeral Comprehension (% Accuracy (0-100 100 )) Numeral Comprehension Comments slow to name Letter Comprehension (% Accuracy (0-100) 100 ) Comprehension: 5-7 Words (% Accuracy (0- 100 100)) Comprehension: 8-10 Words (% Accuracy (0 100 -100)) Comprehension of Complex Statements (% 100 Accuracy (0-100)) Comprehension of Simple Paragraphs (% 100 Accuracy (0-100)) Comprehension of Moderate Paragraphs (% 75 Accuracy (0-100)) Comprehension of Complex Paragraphs (% 75 Accuracy (0-100)) Comprehension of Functional Reading 93 Materials Reading Comprehension Comments During tasks, pt is very hyper focused on any flaws and errors. She is encouraged and praised for her efforts but continues to convey inadequacy which is considerably unjust. Response Latency WFL Overall Reading Comprehension Ability WFL Verbal Expression WH Questions (% Accuracy (0-100)) 100 Confrontational Naming (% Accuracy (0- 100 100)) Sentence Formation Given a Stimulus Word 100 (% Accuracy (0-100)) Response Latency Mild Deficits Comments Related to Verbal Expression recalls items in a category: WFL Written Expression Single Word Dictation (% Accuracy (0-100 100 )) Written Confrontational Naming writing items for grocery list Phrase Production 100 Comments Related to Written Expression random/rare spelling error in
== END 2021-06-02 14:16 | disposition home or self-care (01) ==
LOC: ANHST 09:00
PROVIDERS: PCP Internal Medicine; Visit Provider Internal Medicine
DX: I69.328 Other speech and language deficits following cerebral infarction (principal)
CPT/HCPCS: 92507; 92523

== ENCOUNTER 2022-12-09 21:04 | Emergency (ER) | payer MEDICARE, BC, SELFPAY ==
--- NOTE | ~2022-12-09 | XR_ITS ---
XR finger 2nd LT min 2V DATE: 12/09/2022 23:29 INDICATION: Laceration. 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 Osteopenia. No fracture, dislocation, periosteal reaction or bone destruction. No subcutaneous emphysema or radiopaque soft tissue foreign body. IMPRESSION: Osteopenia Osteophyte is No radiopaque foreign body Reviewed, dictated and finalized at location A.
[2022-12-09 21:10] VITALS: BP 164/102; PULSE 83; RESP 20; TEMP 36.6; O2SAT 100
--- NOTE | 2022-12-09 23:05 | ED.WOUNDLAC ---
HPI - Wound/Laceration General Chief Complaint: Wound/Laceration <Kaylyn Oneill PA-C - Last Filed: 12/10/22 02:34> Stated Complaint: laceration to finger <Kaylyn Oneill PA-C - Last Filed: 12/10/22 02:34> Time Seen by Provider: 12/09/22 22:50 <Kaylyn Oneill PA-C - Last Filed: 12/10/22 02:34> History of Present Illness HPI narrative: Patient is an 82-year-old [id number] female here for evaluation of a laceration to her left second digit sustained several hours ago. Patient states that she was gardening and is unsure exactly what happened. She has a history of a stroke which appears her memory. Her neighbor noticed that she was bleeding and recommended she come to the ED for evaluation. She has full range of motion in the finger and denies any numbness or tingling. She is not on blood thinner medicines. She is unsure of her last tetanus booster. <Kaylyn Oneill PA-C - Last Filed: 12/10/22 02:34> Related Data Home Medications: Home Medications Medication Instructions Recorded Confirmed Bacillus coagulans 10 billion cell 1 cell PO DAILY 07/04/19 11/03/22 capsule,delayed release (Probiotic (B. coagulans)) ascorbate calcium (vitamin C) 500 500 mg PO DAILY 10/18/21 11/03/22 mg tablet multivitamin (Daily Multi-Vitamin 1 tablet PO DAILY 10/18/21 11/03/22 tablet) <MICHAEL Verde Last Filed: 12/10/22 02:34> Allergies/Adverse Reactions: Allergies Allergy/AdvReac Type Severity Reaction Status Date / Time No Known Allergies Allergy Verified 11/03/22 08:57 <MICHAEL Verde Last Filed: 12/10/22 02:34> Review of Systems Review of Systems: Gen: Denies fevers or chills Eyes: Denies eye pain or visual change ENT: Denies congestion Respiratory: Denies shortness of breath or cough CV: Denies chest pain or palpitations GI: Denies abdominal pain nausea, emesis or diarrhea denies burning, urgency, frequency or hematuria Musculoskeletal: Denies back pain or muscle pain Neuro: Denies numbness, tingling, weakness or focal weakness Skin: Reports laceration to finger Except as documented, all other systems reviewed and negative <Kaylyn Oneill PA-C - Last Filed: 12/10/22 02:34> [facility] Past Medical History Medical History: Medical History Acute cerebrovascular accident (CVA) Anxiety CLL (chronic lymphocytic leukemia) Dyslipidemia <Kaylyn Oneill PA-C - Last Filed: 12/10/22 02:34> Family History Family History: Family History Mother Cerebrovascular accident Father Carcinoma of colon Family history of diabetes mellitus in first degree relative Grandparent Diabetes mellitus Sibling Family history of lung cancer Other Family history of malignant neoplasm of breast <Kaylyn Oneill PA-C - Last Filed: 12/10/22 02:34> Social History Social History: Social History Smoking status: Never smoker Second hand tobacco smoke exposure: Yes Alcohol intake: never Substance use: never Substance use type: does not use Gender identity (if verbalized by the patient): Female Spiritual care concerns: No <Kaylyn Oneill PA-C - Last Filed: 12/10/22 02:34> Exam Narrative: Gen: Pleasantly confused elderly female in no acute distress Eyes: EOMI, no icterus Pulm: Respirations even and unlabored, symmetric thorax expansion, no audible stridor or visible cyanosis CV: Brisk capillary refill in all 5 digits. GI: No distension, no voluntary/involuntary guarding Neuro: AOx4, moves all extremities without apparent difficulty or weakness, follows commands MSK: She has full range of motion in her fingers without pain. Sensation intact to fingertip. Skin: There is a 1 cm laceration parallel to the crease in t
[2022-12-09] MEDS: TETANUS,DIPHTHERIA,AC PERTUSSIS ADULT (0.5 ML) BOOSTRIX IM (23:28)
[2022-12-09] MEDS: LIDOCAINE, EPINEPHRINE, TETRACAINE VISCOUS SOLN 3 ML TOPICAL (23:29)
[2022-12-10 00:45] VITALS: BP 151/94; PULSE 69; RESP 18; TEMP 36.6; O2SAT 99
== END 2022-12-10 00:45 | disposition home or self-care (01) ==
PROVIDERS: Emergency Provider Physician Assistant; PCP Internal Medicine
DX: S61.211A Laceration without foreign body of left index finger without damage to nail, initial encounter (principal); Z23 Encounter for immunization; I69.311 Memory deficit following cerebral infarction; C91.10 Chronic lymphocytic leukemia of B-cell type not having achieved remission; E78.5 Hyperlipidemia, unspecified; X58.XXXA Exposure to other specified factors, initial encounter; Y93.H2 Activity, gardening and landscaping
CPT/HCPCS: 12001; 73140; 90471; 90715; 99283

== ENCOUNTER 2025-01-01 01:07 | Day surgery (SDC) | payer MEDICARE, SELFPAY ==
[2024-12-25 15:15] VITALS: BMI 20.8
--- NOTE | 2024-12-25 15:37 | PC.NURSE ---
Addendum entered by Darlene Funk RN 12/30/24 09:30: ASPIRIN HAS BEEN DISCONTINUED MORE THAN 1 WEEK AGO, NO NEW TO HOLD. NURSING FACILITY RELAYS UNDERSTANDING. Original Note: Report to the Outpatient Waiting Room, entrance under the green pavilion located off [facility], at time _11:00AM on date ____01/01/25___. Planned Procedure Time: ___1:00PM .? Time changes happen often and if your time is changed the preop area will call you the afternoon before. - You and your visitor will be asked to self-screen and do not enter if you have any COVID symptoms. Please call surgeon if you need to reschedule. - A mask is optional within the hospital at this time. Patients may have clear liquids (water, carbonated beverages, clear teas, apple juice) until 3 hours prior to surgery (10:00AM) with a maximum of 20 ounces. - No food from midnight until time of surgery and no smoking, or chewing tobacco (or any form of nicotine). No chewing gum, candy or mints. Take only the following medications with a SIP of water on the morning of surgery: ___HYDROXYZINE, SERTRALINE DO NOT STOP ANY OF YOUR OTHER PRESCRIPTION MEDICATIONS PRIOR TO SURGERY EXCEPT THE FOLLOWING Hold all vitamins and supplements for 3 days per anesthesiologist.-LAST DOSE 12/28/24 Medications to discontinue per physician ___DECREASE ASPIRIN 325MG DAILY TO 81 MG DAILY 7 DAYS PRIOR TO SURGERY, STARTING TODAY. MAY RESUME 325MG DOSE AFTER SURGERY PER DR ROBERSON. Please no make-up, nail pashto, hairspray, perfume, deodorant, or body powder the day of surgery.? No jewelry (including any body piercings) or valuables the day of surgery, leave them at home.? Please take a shower or bath the night before, or the morning of, surgery with an antibacterial soap.? Wear comfortable, loose fitting clothing.? - Jewelry must be removed prior to entering the operating room.? Rings and piercings that are not removed may be cut off. - The hospital will not accept responsibility for valuables.? - Please leave all valuables, including medications, at home the day of surgery. If you are going home after surgery, a licensed crew truck driver must drive you home.? - NO public transportation without another adult if you receive anesthesia. - We recommend that an adult stay with you for 24 hours following discharge. - We also recommend that you do not drive, make important decision, drink alcoholic beverages, or take any drugs that were not prescribed by your health care provider for at least 24 hours after your discharge time. Follow any additional instructions given to you from your surgeon. Telephone instructions given to _[facility] and asked if any additional questions and then verbalized understanding. Patient advised to call surgeon office or pre surgery nurse liaison [phone] if any additional questions.
--- OUTSIDE RECORDS SUMMARY | 2025-01-01 01:10 | XMS_ITS ---
Author Name Auto Generated, Auto Generated Organization [facility] ices Address [address] [place] [address] Phone [phone] Care Team Providers Care Applied Behavior Specialist Name Role Phone Rickey Drake Den Unavailable Dameon Ayala Unavailable Israel Kandace Unavailable [phone] Functional Status No Results Mental Status No Results Allergies and Intolerances Name Onset Date Reaction Severity No Known Allergies (Allergy) MonJanuary 07 16:29:00 EDT 2020 Medications Medication Directions Start Date End Date [facility] 10 billion cell-200 mg sprinkle capsule 1 tab Oral 1 Time Daily Probiotics MonJanuary 11 12:30:00 EDT 2020January 23 01:00:00 EDT 2020 Adults 50 Plus 0.4 mg-300 mcg-250 mcg tablet 1 tab Oral 1 Time Daily Supplement MonJanuary 11 12:30:00 EDT 2020January 23 01:00:00 EDT 2020 multivitamin with minerals tablet 1 tablet TABLET Oral 1 Time Daily Supplement MonJanuary 08 09:00:00 EDT 2020January 11 12:34:00 EDT 2020 aspirin 325 mg tablet 1 tab TABLET Oral 1 Time Daily MonJanuary 08 09:00:00 EDT 2020January 23 01:00:00 EDT 2020 atorvastatin 20 mg tablet 1 tab TABLET O ral 1 Time Daily hyperlipidemia MonJanuary 07 21:00:00 EDT 2020January 23 01:00:00 EDT 2020 Probiotic (B. coagulans) 10 billion cell capsule,delayed release 1 cap CAPSULE,DELAYED RELEASE (ENTERIC COATED) Oral 1 Time Daily MonJanuary 08 09:00:00 EDT 2020January 11 12:34:00 EDT 2020 cetirizine 5 mg tablet 1 tab TABLET Oral PRN Every 1 Day allergies MonJanuary 07 13:00:00 EDT 2020January 23 01:00:00 EDT 2020 ALPRAZolam 0.25 mg tablet 1 tab TABLET O ral 1 Time Daily anxiety MonJanuary 07 21:00:00 EDT 2020January 08 12:44:00 EDT 2020 ALPRAZolam 0.25 mg tablet 1 tab TABLET O ral 1 Time Daily anxiety MonJanuary 07 09:00:00 EDT 2020January 23 01:00:00 EDT 2020 Problems Active Concerns * Chronic lymphocytic leukemia of B-cell type not having achieved remission* Code: * Start Date: MonJanuary 07 00:00:00 EDT 2020 * End Date: * Text: * correction (current) use of aspirin* Code: * Start Date: MonJanuary 07 00:00:00 EDT 2020 * End Date: * Text: * Allergic rhinitis, unspecified* Code: * Start Date: MonJanuary 07 00:00:00 EDT 2020 * End Date: * Text: * Generalized anxiety disorder* Code: * Start Date: MonJanuary 07 00:00:00 EDT 2020 * End Date: * Text: * Major depressive disorder, single episode, unspecified* Code: * Start Date: MonJanuary 07 00:00:00 EDT 2020 * End Date: * Text: * Hemiplegia and hemiparesis following cerebral infarction affecting right dominant side* Code: * Start Date: MonJanuary 07 00:00:00 EDT 2020 * End Date: * Text: * Unspecified sequelae of cerebral infarction* Code: * Start Date: MonJanuary 07 00:00:00 EDT 2020 * End Date: * Text: * Homonymous bilateral field defects, right side* Code: * Start Date: MonJanuary 07 00:00:00 EDT 2020 * End Date: * Text: * Unspecified dementia, unspecified severity, without behavioral disturbance, psychotic disturbance, mood disturbance, and anxiety* Code: * Start Date: MonJanuary 07 00:00:00 EDT 2020 * End Date: * Text: * Chronic rhinitis* Code: * Start Date: MonJanuary 07 00:00:00 EDT 2020 * End Date: * Text: * Hyperlipidemia, unspecified* Code: * Start Date: MonJanuary 07 00:00:00 EDT 2020 * End Date: * Text: * Unspecified diastolic (congestive) heart failure* Code: * Start Date: MonJanuary 07 00:00:00 EDT 2020 * End Date: * Text: * Insomnia, unspecified* Code: * Start Date: MonJanuary 07 00:00:00 EDT 2020 * End Date: * Text: Reason for Referral Past Medical History
--- OUTSIDE RECORDS SUMMARY | 2025-01-01 01:10 | XMS_ITS | Continuity of Care Document ---
Author Organization [facility] [place] [address] [place] [address] Phone Care Team Providers Care Logistics/Shipper Name Role Phone [facility] Unavailable Unavail able Ranjana Belcher Unavailable Unavailable Advance Directives Directive Yes / No Effective Date File Name No Information Encounters Encounter Description Practice Location Reason(s) For Visit Diagnoses Date Provider Providers Copied on Encounter [facility], [address], [place], [place], [id number], [place] tel:[phone] [facility] No Information 4-[address] [facility] [address], [address], [place], [place], [id number] , [place]. tel:[phone] Referring Provider: Hira Hutton MD, [address] [place], [address]. tel:[phone] g Provider: Ranjana Belcher, [address] [place] [address], [address]. tel:[phone] Family History Family Member Type Diagnosis Age At Onset No Information Payers Payer name Insurance type Covered republican ID Authoriza tion(s) No Information Social History Type Description Quantity Date Captured Comments Sex Female Smoking Status No Information Chief Complaint And Reason For Visit No Information Reason For Referral Reason For Referral No Information History Of Present Illness Encounter Date Complaint History Of Prese nt Illness No Information Functional Status Date Functional Assessmen t No Information Instructions Date Instruction Additional Infor mation No Information Assessments Type Assessment Date No Information Patient Care Teams Name Effective Dates (start - stop) Status Members No Information
--- OUTSIDE RECORDS SUMMARY | 2025-01-01 01:10 | XMS_ITS ---
Author Name Auto Generated, Auto Generated Organization [facility] ices Address [address] [place] [address] Phone [phone] Care Team Providers Care Insulation Board Back Tender Name Role Phone Rickey Drake Den Unavailable Dameon Ayala Unavailable Israel Kandace Unavailable Functional Status No Results Mental Status No Results Allergies and Intolerances Name Onset Date Reaction Severity No Known Allergies (Allergy) MonJanuary 07 16:29:00 EDT 2020 Medications Medication Directions Start Date End Date [facility] 10 billion cell-200 mg [...] 2020 * End Date: * Text: * custodial (current) use of aspirin* Code: * Start [...]
--- NOTE | 2025-01-01 10:12 | WPDANESEPPF ---
Anes - Initial Pre Proc Eval Procedure: Operation Date: 01/01/25 12:00 Proposed Procedures p Excision Skin Lesion Right Upper Arm - Rui Elmore MD Date/Time: 01/01/25 10:12 Surgeon: Rui Elmore MD Pre Op Diagnosis: Skin Lesion Right Upper Arm Patient Data Age: 84 Gender: F Height: 1.55 m Weight: 50 kg Allergies Allergy/AdvReac Type Severity Reaction Status Date / Time No Known Allergies Allergy Verified 12/30/24 09:13 Home Medications ?Medication ?Instructions ?Recorded ?Confirmed ?Type ascorbate calcium (vitamin C) 500 500 mg PO DAILY 10/18/21 12/29/24 History mg tablet multivitamin (Daily Multi-Vitamin 1 tablet PO DAILY 10/18/21 12/29/24 History tablet) donepezil 5 mg tablet 5 mg PO DAILY 12/25/24 12/29/24 History hydroxyzine pamoate 25 mg capsule 25 mg PO BID 12/25/24 12/30/24 History sertraline 50 mg tablet 75 mg PO DAILY 12/25/24 12/30/24 History Patient hx anesthesia problems: none Family hx anesthesia problems: none Results Review: All pre-operative results and documents have been reviewed as part of the pre-operative evaluation. [facility] Past Medical History Medical History Acute cerebrovascular accident (CVA) Anxiety CLL (chronic lymphocytic leukemia) Dyslipidemia Family History Family History Mother Cerebrovascular accident Father Carcinoma of colon Family history of diabetes mellitus in first degree relative Lung cancer Grandparent Diabetes mellitus Sibling Family history of lung cancer Other Family history of malignant neoplasm of breast Social History Social History Smoking packs per day: 0.25 Smoking cigarettes per day: 5.0 Years smoked: 4 Smoking pack-years: 1.00 Smoking status: Former smoker Tobacco type: cigarettes Second hand tobacco smoke exposure: Yes Smoking end date: 03/04/1965 Alcohol intake: never Substance use: never Substance use type: does not use Do You Feel Safe in your Home?: Yes Lack of Transportation: No Lack of Food: Never True Current Housing: I Have Housing Concerned About Future Housing: No Difficulty Paying Gas/Electric Bills: No Difficulty Paying for Meds: No Currently Unemployed: No Difficulty w/ Childcare or Family Care: Decline to Answer Living arrangements: intermediate Additional living arrangements comments: [facility] Occupation/Education: retired Gender identity (if verbalized by the patient): Female Spiritual care concerns: No Anes - Eval Final PreProcedure Day of Procedure 01/01/25 10:12 Patient weight: normal Lungs: normal air movement Airway: Mallampati scale class II Neurological: alert and oriented Last oral intake: >/= 8 hours ASA classification: III Emergent: no Anesthetic plan: proceed Anesthesia type and monitoring: general GIVS and standard monitoring Results Review: All pre-operative results and documents have been reviewed as part of the pre-operative evaluation. Hx of CVA 2020, dementia, CLL without current treatment, hyperlipidemia. Pt DNR status discussed w pt and son Sherif. They are in agreement to option 3 for goal directed approach. Informed Consent: The patient's anesthetic plan and its attendant risks and benefits were discussed with the patient/family/POA. Questions were solicited and answers provided to the satisfaction of the patient/family/POA.
[2025-01-01] MEDS: LACTATED RINGERS 1,000 ML 30 ML IV CONT (11:00)
[2025-01-01 11:27] VITALS: BP 115/64; PULSE 74; RESP 16; TEMP 36.8; O2SAT 99
--- NOTE | 2025-01-01 11:36 | WPDHPUPDATE1 ---
History and Physical Update Update Date/Time: 01/01/25 11:36 History and Physical has been reviewed, including an updated exam of the patient. There are NO changes in the patient's condition. Risks, benefits, and alternatives have been discussed and questions answered. Patient agrees to proceed with procedure.
[2025-01-01 11:37] LABS: Basophils Absolute Auto 0.1 K/mm3 (0.0-0.1); Basophils Percent Auto 0.4 % (0.2-1.2); Eosinophils Absolute Auto 0.1 K/mm3 (0-0.3); Eosinophils Percent Auto 0.4 % (0-4.4); Hematocrit 38.9 % (37.0-47.0); Hemoglobin 12.7 g/dL (12.0-15.0); Immature Granulocyte Absolute 0.03 K/mm3 (0.00-0.031); Immature Granulocyte Percent A 0.2 % (0-0.5); Lymphocytes Absolute Auto 9.81 K/mm3 (0.9-3.2); Lymphocytes Percent Auto 58.4 % (18.3-44.2); Mean Corpuscular HGB Conc 32.6 g/dl (32-36); Mean Corpuscular Hemoglobin 31.7 pg (26-34); Mean Platelet Volume 10.1 fl (7.4-10.4); Monocytes Absolute Auto 0.6 K/mm3 (0.1-0.6); Monocytes Percent Auto 3.3 % (2.6-8.5); Neutrophils Absolute Auto 6.3 K/mm3 (1.3-6.7); Neutrophils Percent Auto 37.3 % (45.5-73.1); Platelet Count Result 230 k/mm3 (150-375); Red Blood Count 4.01 M/mm3 (4.2-5.4); Red Cell Distribution Width 12.8 % (11.5-14.5); White Blood Count 16.8 K/mm3 (4.5-10.0)
[2025-01-01] MEDS: ceFAZolin 2 GM/D5W 50 ML 2 GM/50 ML BAG IVPB (12:04)
[2025-01-01] MEDS: BUPIVACAINE/EPINEPHRINE 0.5% 10 ML VIAL 30 ML INFILTRATE (12:26)
[2025-01-01 12:55] VITALS: BP 133/69; PULSE 77; RESP 16; O2SAT 100
--- NOTE | 2025-01-01 13:00 | W.PM.PROC2 ---
Procedure Note - Detailed Date of Procedure 01/01/25 Pre-op Diagnosis Skin Lesion Right Upper Arm Post-op Diagnosis Same Procedure Performed Excision 1.5 cm skin lesion right upper arm with 1 mm margins, 1.7 cm excision. 6 cm layered closure right on arm. Surgeon Rui Elmore MD Dental Equipment Technician Andreia MAST Anesthesia General (G IV S) Indications Patient has a history of a mild stroke and some memory impairment. She was noted to have an umbilicated fairly exophytic skin lesion in the triceps area of her right upper arm. She is taken to surgery now to have this excised. It is suspicious for a skin cancer. Findings Skin lesion fully excised. Measured 1.5 cm in greatest dimension Description of Procedure Patient was taken to surgery and anesthesia was introduced. Her entire right arm was prepped so that the arm was mobile and in the sterile field. She had been marked in the preoperative holding area and the right arm placed across her trunk showed the lesion quite well. A longitudinally oriented ellipse was drawn around the skin lesion. Local anesthetic was infiltrated into the area of the anticipated skin lesion as well as in some of the deeper subcutaneous tissue. The lesion was then excised taking a 1 mm margin or more. Once excised, I measured the size of the lesion. I also measured the size of the defect to be closed which was 6 cm. The lesion was sent to pathology in formalin. The wound was made hemostatic with the cautery. Subcutaneous 3-0 Vicryl sutures were placed. Subcuticular interrupted 4-0 Vicryl skin sutures were placed. The skin was finally closed with a running 4-0 Monocryl skin suture. The wound was dressed with Exofin surgical adhesive. Patient was awakened and taken to the step-down unit in good condition. Sponge needle counts were correct x2. Estimated Blood Loss -5 Drains No Packing No Pathology Yes (Skin lesion right upper arm) Complications None Condition Stable Disposition Same day [facility] Billing Surgery - Charge Forward: Surgery Billing (Excision 1.5 cm skin lesion right upper arm with 1 mm margins, 1.7 cm excision. 6 cm layered closure right on arm.)
[2025-01-01 13:25] VITALS: BP 129/83; PULSE 68; RESP 16; O2SAT 100
[2025-01-01 13:45] VITALS: BP 116/53; PULSE 68; RESP 16; O2SAT 100
--- NOTE | 2025-01-01 14:07 | SUR.PHASEII ---
1400- pt c/o being cold during length of stay. after pt up in recliner, jojo jade placed on pt. for stay.
--- NOTE | 2025-01-01 14:11 | SUR.PHASEII ---
1400- assisted pt with dressing and then she ambulated to bathroom with assistance. gait was mostly steady.
== END 2025-01-01 14:12 | disposition home or self-care (01) ==
PROVIDERS: PCP Internal Medicine; Visit Provider Surgery
PROC: (CPT 11602; principal; 2025-01-01 12:00)
DX: C44.622 Squamous cell carcinoma of skin of right upper limb, including shoulder (principal)
CPT/HCPCS: 11602; 12032; 36415; 85025; 88304; J0690; J2003; J2405; J2704; J3010; J7120